=== PATIENT | male | born 1970 | race Caucasian/White ===

== ENCOUNTER 2016-07-07 17:24 | Emergency (ER) | payer MEDICARE, OTHER ==
[~2016-07-07 17:24] MED LIST: NO HOME MEDS; PRAVAC PO; PRIN10 PO; [UNRECOGNIZED DRUG - REMARK]
== END 2016-07-07 18:42 | disposition home or self-care (01) ==
LOC: ER 17:24
DX: S39.012A Strain of muscle, fascia and tendon of lower back, initial encounter (principal); I10 Essential (primary) hypertension; E11.9 Type 2 diabetes mellitus without complications; Z88.8 Allergy status to other drugs, medicaments and biological substances; Z88.6 Allergy status to analgesic agent; Z88.5 Allergy status to narcotic agent; Z79.899 Other long term (current) drug therapy; X58.XXXA Exposure to other specified factors, initial encounter
CPT/HCPCS: 99283; A9270-GY